=== PATIENT | male | born 1960 | race Caucasian/White ===

== ENCOUNTER 2017-03-19 20:45 | Emergency (ER) | payer SELFPAY ==
[~2017-03-19] VITALS: Ht 188 cm; Wt 93.0 kg
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
[2017-03-19] MEDS ORDERED: HYDROCODONE/APAP 5/325MG 1 EACH TABLET ONE (21:36)
[2017-03-19] MEDS ORDERED: CYCLOBENZAPRINE 10 MG TABLET ONE (21:37)
[2017-03-19] MEDS ORDERED: ONDANSETRON 4 MG TAB.RAPDIS ONE (21:37)
--- NOTE | 2017-03-19 21:41 | NUR ---
MEDICATED PATIENT ORDERED BY DR MAURICIO.
[2017-03-19] MEDS ORDERED: CYCLOBENZAPRINE 10 MG TABLET PO ONE (22:00)
[2017-03-19] MEDS ORDERED: ONDANSETRON 4 MG TAB.RAPDIS SL ONE (22:00)
[2017-03-19] MEDS ORDERED: TDAP [DIPH/PERTUSSIS/TET] 0.5 ML VIAL IM ONE ×2 (22:00→22:20)
[2017-03-19] MEDS ORDERED: HYDROCODONE/APAP 5/325MG 1 EACH TABLET PO ONE (22:00)
--- NOTE | 2017-03-19 22:08 | NUR ---
PLACED C-COLLAR ON PATIENT
--- NOTE | 2017-03-19 22:16 | NUR ---
patient back from xray.
[2017-03-19 22:45] VITALS: BP 135/74
--- NOTE | 2017-03-19 22:45 | NUR ---
Patient discharged to home in stable condition. Written and verbal after care instructions given. Patient verbalizes understanding of instruction. patient is ambulatory with steady gait, instructed not to drive. no further complaints.
== END 2017-03-19 22:46 | disposition home or self-care (01) ==
LOC: ER 20:48
DX: S16.1XXA Strain of muscle, fascia and tendon at neck level, initial encounter (principal); S39.012A Strain of muscle, fascia and tendon of lower back, initial encounter; Z23 Encounter for immunization; V43.52XA Car driver injured in collision with other type car in traffic accident, initial encounter; Y93.89 Activity, other specified; Y92.410 Unspecified street and highway as the place of occurrence of the external cause; Y99.8 Other external cause status
CPT/HCPCS: 72040; 72100; 90471; 90715; 99284; A4606; Q0162; Z7610

== ENCOUNTER 2017-04-22 16:27 | Emergency (ER) | payer SELFPAY ==
[~2017-04-22] VITALS: Ht 188 cm; Wt 93.0 kg
[2017-04-22 16:27] VITALS: BP 130/85
[2017-04-22] MEDS ORDERED: KETOROLAC TROMETHAMINE INJ 30 MG/ML VIAL ONE (16:54)
[2017-04-22] MEDS ORDERED: KETOROLAC TROMETHAMINE INJ 30 MG/ML VIAL IM ONE (17:00)
== END 2017-04-22 17:02 | disposition home or self-care (01) ==
LOC: ER 16:30
DX: S39.012A Strain of muscle, fascia and tendon of lower back, initial encounter (principal); M50.90 Cervical disc disorder, unspecified, unspecified cervical region; G89.29 Other chronic pain; M50.91 Cervical disc disorder, unspecified, high cervical region; X58.XXXA Exposure to other specified factors, initial encounter; Y93.89 Activity, other specified; Y92.89 Other specified places as the place of occurrence of the external cause; Y99.8 Other external cause status
CPT/HCPCS: 96372; 99283; A4606; J1885; Z7610